=== PATIENT | male | born 1980 | race Caucasian/White ===

== ENCOUNTER 2021-02-09 10:15 | Emergency (ER) | payer BC ==
[~2021-02-09] VITALS: Ht 182.9 cm; Wt 74.6 kg
--- NOTE | 2021-02-09 10:26 | NUR ---
BIB EMS, C/O LEFT SIDE NON RADIATING CP, TIGHTNESS, +DIAPHORESIS, +NAUSEA X 1HR. 324ASA GIVEN BY EMS. ALL MONITORS PLACED, VSS. PT DENIES CP AT THIS TIME. DR BASHIR AT BEDSIDE, PT ASSESSMENT POC, DISCUSSED AND QUESTIONS ANSWERED.
[2021-02-09 11:07] LABS: BASOPHILS % (AUTO) 1 % (0-1); EOSINOPHILS % (AUTO) 1 % (1-7); LYMPHOCYTES % (AUTO) 28 % (22-44); MEAN PLATELET VOLUME 6.7 fL (7.4-10.4); MONOCYTES % (AUTO) 8 % (2-9); NEUTROPHILS % (AUTO) 63 % (42-75); PLATELET COUNT 250 x10^3/uL (130-400); RED BLOOD COUNT 5.24 x10^6/uL (4.38-5.82); RED CELL DISTRIBUTION WIDTH 13.4 % (9.4-14.8)
[2021-02-09 11:18] LABS: ALBUMIN 3.4 g/dL (3.4-5.0); ANION GAP 4 mmol/L (5-15); CALCIUM 8.9 mg/dL (8.5-10.1); CHLORIDE 108 mmol/L (98-107)
[2021-02-09 11:23] LABS: ALANINE AMINOTRANSFERASE 105 U/L (12-78); ALKALINE PHOSPHATASE 82 U/L (45-117); BILIRUBIN,TOTAL 0.6 mg/dL (0.2-1.0); CREATININE 0.78 mg/dL (0.7-1.3); TOTAL PROTEIN 7.1 g/dL (6.4-8.2); TROPONIN I < 0.015 ng/mL (0.000-0.045)
--- NOTE | 2021-02-09 11:38 | NUR ---
ALL TESTS RESULTED AND CHART UP FOR RECHECK. PT AWARE.
[2021-02-09 12:00] VITALS: BP 116/84
--- NOTE | 2021-02-09 12:19 | NUR ---
Patient/Caregiver given discharge instructions and they have confirmed that they understand the instructions. Patient ambulatory with steady gait. NAD, all questions answered appropriately, denies additional needs at this time. No personal belongings left in room after discharge.
== END 2021-02-09 12:40 | disposition home or self-care (01) ==
LOC: ED 11:34
DX: R07.89 Other chest pain (principal); R94.31 Abnormal electrocardiogram [ECG] [EKG]; I10 Essential (primary) hypertension; Z91.14 Patient's other noncompliance with medication regimen
CPT/HCPCS: 36415; 71045; 80053; 84484; 85025; 93005; 99285